=== PATIENT | female | born 1980 | race Two or more races ===

== ENCOUNTER 2018-04-05 13:00 | Emergency (ER) | payer BC, OTHER ==
[~2018-04-05] VITALS: Ht 157.5 cm; Wt 53.5 kg
[2018-04-05 13:22] LABS: *BILIRUBIN,URIN NEGATIVE (NEGATIVE); *BLOOD, URINE NEGATIVE (NEGATIVE); *CLARITY,URINE CLEAR (CLEAR); *COLOR,URINE YELLOW (YELLOW); *KETONES,URINE 1+ (NEGATIVE); *PROTEIN,URINE NEGATIVE (NEGATIVE); *UROBILINOGEN,URINE 0.2 E.U./dl (NORMAL); LEUKOCYTE ESTERASE ,URINE TRACE (NEGATIVE); NITRITE, URINE NEGATIVE (NEGATIVE); PH,URINE 5.5 (5.0-8.0); UGLUCOSE NEGATIVE (NEGATIVE)
[2018-04-05 13:23] LABS: *URINE HCG, QUAL NEGATIVE (NEGATIVE)
[2018-04-05 13:27] LABS: RBC,URINE NONE SEEN /HPF (0-3)
[2018-04-05 13:28] LABS: BACTERIA,URINE FEW /HPF (NONE SEEN); SQUAMOUS EPITHELIAL CELL,UR FEW /HPF (NONE SEEN); WBC,URINE 0-3 /HPF (0-3)
[2018-04-05 13:46] VITALS: BP 135/72
--- NOTE | 2018-04-05 13:46 | NUR ---
Patient discharged to home in stable conditon. Written and verbal after care instructions given. Patient verbalizes understanding of instructions.
== END 2018-04-05 13:51 | disposition home or self-care (01) ==
LOC: ER 13:03
DX: N39.0 Urinary tract infection, site not specified (principal)
CPT/HCPCS: 76856; 81001; 84703; 99285; A4663

== ENCOUNTER 2022-04-20 17:03 | Emergency (ER) | payer MEDICAID, OTHER ==
[~2022-04-20] VITALS: Ht 157.5 cm; Wt 56.7 kg
[2022-04-20] MEDS ORDERED: ACETAMINOPHEN 325 MG TABLET ONE (17:29)
[2022-04-20] MEDS: ACETAMINOPHEN 325 MG TABLET PO ONE (17:51)
[2022-04-20] MEDS: IV NORMAL SALINE 500 ML BAG IV ONE (17:51)
[2022-04-20 17:54] LABS: HEMATOCRIT 41.3 % (31.2-41.9); MEAN CORPUSCULAR HEMOGLOBIN 31.7 uug (24.7-32.8); MEAN CORPUSCULAR VOLUME 91.3 fL (75.5-95.3); PLATELET COUNT (AUTO) 284 K/uL (179-408)
[2022-04-20] MEDS ORDERED: ASPIRIN 325 MG TABLET ONE (17:54)
[2022-04-20] MEDS: ASPIRIN 325 MG TABLET PO ONE (17:56)
--- NOTE | 2022-04-20 17:59 | NUR ---
Patient in room 4B. Awake, alert, and oriented. Seen by Dr. Magallanes. Will carry out current orders. IV to left AC started. EKG done and vitals signs taken. Labs drawn. CT pending. Sister at bedside.
[2022-04-20 18:17] LABS: CARBON DIOXIDE 24 mmol/L (21-32); CHLORIDE 106 mmol/L (98-107); GLUCOSE 97 mg/dL (74-106); POTASSIUM 3.5 mmol/L (3.5-5.1); UREA NITROGEN, BLOOD 12 mg/dL (7-18)
[2022-04-20 18:25] LABS: ALANINE AMINOTRANSFERASE 18 U/L (14-59); ALKALINE PHOSPHATASE 47 U/L (50-136); ASPARTATE AMINOTRANSFERASE 9 U/L (15-37); BILIRUBIN,DIRECT 0.1 mg/dL (0.0-0.2); BILIRUBIN,TOTAL 0.4 mg/dL (0.2-1.0); LIPASE 172 U/L (73-393); TOTAL PROTEIN, SERUM 7.7 g/dL (6.4-8.2)
[2022-04-20] MEDS ORDERED: IV NORMAL SALINE 250 ML IV ONE (18:27)
[2022-04-20] MEDS ORDERED: IOHEXOL 350 100 ML INFUS..BTL ONE (18:27)
[2022-04-20] MEDS ORDERED: SWABABLE VALVE TRANSFER SET EA MC ONE (18:27)
[2022-04-20 18:36] LABS: *URINE HCG, QUAL NEGATIVE (NEGATIVE)
[2022-04-20 22:15] VITALS: BP 100/73
== END 2022-04-20 22:00 | disposition home or self-care (01) ==
LOC: ER 17:03
DX: R07.9 Chest pain, unspecified (principal); R03.0 Elevated blood-pressure reading, without diagnosis of hypertension
CPT/HCPCS: 99285; 71275; 71045; 80076; 80048; 84703; 83880; 83690; 85025; 84484 ×2; 36415; 93005 ×2; Q9967; J7040; A4663

== ENCOUNTER 2022-10-09 10:10 | Emergency (ER) | payer MEDICAID ==
[~2022-10-09] VITALS: Ht 157.5 cm; Wt 55.3 kg
--- NOTE | 2022-10-09 10:17 | NUR ---
seen and examined by
[2022-10-09] MEDS ORDERED: predniSONE 20 MG TABLET ONE (10:25)
[2022-10-09] MEDS ORDERED: predniSONE 20 MG TABLET PO ONE (10:30)
[2022-10-09] MEDS ORDERED: PRED20TA PO (10:36)
[2022-10-09] MEDS ORDERED: CEPH500T PO (10:36)
--- NOTE | 2022-10-09 10:38 | NUR ---
Patient discharged to home in stable condition. Written and verbal after care instructions given. Patient verbalizes understanding of instructions. Stressed follow up or return to ER for worsening s/s.
[2022-10-09 10:40] VITALS: BP 112/80
== END 2022-10-09 10:40 | disposition home or self-care (01) ==
LOC: ER 10:10
DX: H57.89 Other specified disorders of eye and adnexa (principal)
CPT/HCPCS: 99285; J7512; A4663